=== PATIENT | male | born 1990 | race African-American/Black ===

== ENCOUNTER 2017-05-24 16:01 | Emergency (ER) | payer SELFPAY ==
[~2017-05-24] VITALS: Ht 180.3 cm; Wt 85.6 kg
[2017-05-24 16:06] VITALS: TEMP 36.7; Ht 180.3 cm; Wt 85.6 kg
[2017-05-24] MEDS ORDERED: ALBUT/IPRATROP 3MG/0.5MG NEB 3 ML VIAL INH STA (16:15)
--- NOTE | 2017-05-24 16:48 | DIAGNOSTIC IMAGING REPORT ---
TWO VIEW CHEST CLINICAL HISTORY: Fever. FINDINGS: PA and lateral chest radiographs are obtained. No prior studies are available for comparison at the time of dictation. The cardiomediastinal silhouette is unremarkable. The lungs and pleural spaces are clear. There is no pneumothorax. The bony thorax appears intact. IMPRESSION: No active disease in the chest. Electronically signed by: Randy Edmond M.D. 05/24/2017 4:46 PM Dictated Date/Time: 05/24/2017 4:46 PM
[2017-05-24] MEDS ORDERED: ALBUTEROL HFA 8 GM INHALER INH ONE (17:15)
--- NOTE | 2017-05-24 17:18 | EMERGENCY ROOM VISIT NOTE ---
History Report prepared by Ed: Mora Munson Under the Supervision of: Dr. Keaton Faith M.D. First contact with patient: 16:10 Chief Complaint: RESPIRATORY PROBLEMS Stated Complaint: ASTHMA ATTACK Nursing Triage Summary: Pt reports he walked to work today, pt believes he may have had an asthma attack to the [facility]. pt c/o right sided pain, pain with deep breathing. hx of Asthma, but does not have inhalers now History of Present Illness The patient is a 26 year old male who presents to the Emergency Room with complaints of an asthma attack beginning shortly prior to arrival. The patient states that he was walking to his job and thinks that the asphalt from the roads may have aggravated his symptoms. It is also very warm and humid outside. When he got to his job, he sat down for 45 minutes to see if his symptoms would go away, but he still felt like he couldn't breathe. He also complains of some bilateral sharp chest pains with deep breaths. He denies any pain or swelling in his legs and being febrile. The patient reports that he smokes 1-2 cigarettes per day. He states that he has no other medical problems besides asthma and that he has no history of blood clots. The patient denies recent travel and being bed-ridden. Source of History: patient Onset: shortly prior to arrival Position: other (global) Quality: sharp Modifying Factors (Worsening): breathing (deep) Associated Symptoms: No fevers Note: also denies: pain and swelling in bilateral legs Review of Systems See HPI for pertinent positives & negatives. A total of 10 systems reviewed and were otherwise negative. Past Medical & Surgical Medical Problems: (1) Asthma, Unspecified (2) Orchitis/Epididymit Nos Social History Problems: (1) Tobacco Use Disorder Family History Patient reports no known family medical history. No pertinent family history stated. Social History Smoking Status: Current Every Day Smoker Alcohol Use: occasionally Marital Status: single Occupation Status: employed Current/Historical Medications No Active Prescriptions or Reported Meds Allergies Coded Allergies: No Known Allergies (Unverified , 09/29/11) Physical Exam Vital Signs Date Time Temp Pulse Resp B/P (MAP) Pulse Ox O2 Delivery O2 Flow Rate FiO2 05/24/17 16:30 Room Air 05/24/17 16:10 96 Room Air 05/24/17 16:06 36.7 84 18 133/75 97 Room Air Physical Exam Constitutional: Vital signs reviewed. Eyes: Pupils are equal round reactive to light. Conjunctiva are noninjected. ENT: Pharynx is clear without erythema or exudate. Mucous membranes are moist. Neck supple without meningeal signs. Respiratory: Scattered wheezing bilaterally. Breath sounds are equal bilaterally. Cardiovascular: Regular rate and rhythm. No rubs or gallops. GI: Soft, nondistended and nontender. Bowel sounds are present. Musculoskeletal: No peripheral edema. No lower extremity tenderness. Integumentary: No cyanosis. Neurological: The patient is awake and alert. No focal deficits. Psychiatric: Normal affect. Medical Decision & Procedures ER Provider Diagnostic Interpretation: X-ray results as stated below per interpretation by me and the radiologist: TWO VIEW CHEST CLINICAL HISTORY: Fever. FINDINGS: PA and lateral chest radiographs are obtained. No prior studies are available for comparison at the time of dictation. The cardiomediastinal silhouette is unremarkable. The lungs and pleural spaces are clear. There is no pneumothorax. The bony thorax appears intact. IMPRESSION: No active disease in the chest. Electronically signed by: Randy Edmond M.D. 05/24/2017 4:46 PM Dictated Date/Time: 05/24/2017 4:46 PM Medications Administered Medications (Trade) Dose Ordered Sig/Denise Route Start Time Stop Time Status Last Admin Dose Admin Albuterol/ Ipratropium (Duoneb) 3 ml NOW STAT INH 05/24/17 16:15 05/24/17 16:17 DC 05/24/17 16:43 3 ML ECG Indication: SOB/dyspnea Rate (beats per minute): 70 Rhythm: normal sinus Findings: no acute ischemic change, no ectopy, other (early repolarization) ED Course 1610: The patient was evaluated in room C6. A complete history and physical exam was performed. 1615: Ordered Duoneb 3 ml INH. 1700: I checked on the patient and he feels a lot better. No wheezing on exam. 1715: Ordered Albuterol 1 puff INH. 1722: Upon reevaluation, the patient appeared to have improvement of his symptoms. I discussed tonight's findings with him. He verbalized agreement of the treatment plan. He was discharged home. Medical Decision This is a 26-year-old male who presents with shortness of breath and chest discomfort. Differential diagnosis includes acute asthma exacerbation, pleurisy , pneumonia, pneumothorax. I did perform a limited focused review of portions of the patient's old chart on the electronic medical record. The patient has had no recent pertinent visits to this hospital. Blood Pressure Screening: Patient was found to have a slightly elevated blood pressure due to circumstances. I do not believe that the patient requires hypertension monitoring. Medication Reconciliation: I attest that I have personally reviewed the patient' s current medication list. I did evaluate the patient as noted above. The patient is presenting with shortness of breath. He feels like he is having an asthma exacerbation. He ran out of his inhaler. He was walking outside in the heat and humidity and was exposed to the odor of asphalt. He is wheezing on examination. I do not suspect pulmonary embolism. He was ruled out via PERC rules. I did order and personally review the patient's 12-lead EKG and chest x-ray as described above. He has early repolarization on his Twelve-lead EKG. He has no signs of pneumonia on his chest x-ray. I did treat the patient with a DuoNeb. On reassessment he states he feels much better and has no wheezing on exam. He was given an albuterol MDI and a work note and discharged in good condition. He was advised follow up with a regular physician. Impression Primary Impression: Acute asthma exacerbation Scribe Attestation The scribe's documentation has been prepared under my direct and personally reviewed by me in its entirety. I confirm that the note above accurately reflects all work, treatment, procedures, and medical decision making performed by me. Departure Information Dispostion Home / Self-Care Prescriptions No Active Prescriptions or Reported Meds Referrals No Doctor, Assigned (PCP) Forms HOME CARE DOCUMENTATION FORM, IMPORTANT VISIT INFORMATION, WORK / SCHOOL INSTRUCTIONS Patient Instructions Asthma - [facility], My [facility] Additional Instructions You have been examined and treated today on an emergency basis only. This is not a substitute for, or an effort to provide, complete comprehensive medical care. It is impossible to recognize and treat all injuries or illnesses in a single emergency department visit. It is therefore important that you follow up closely with your physician. Call as soon as possible for an appointment. Return for worsening symptoms or if you develop fever, vomiting, or any other concerning symptoms. Problem Qualifiers Primary Impression: Acute asthma exacerbation Asthma severity: unspecified severity Qualified Codes: J45.901 - Unspecified asthma with (acute) exacerbation
[2017-05-24 17:26] VITALS: BP 127/65; PULSE 78; O2SAT 98
== END 2017-05-24 17:27 | disposition home or self-care (01) ==
LOC: C.EDB 16:02 → C.EDC 17:27
DX: J45.901 Unspecified asthma with (acute) exacerbation (principal); F17.200 Nicotine dependence, unspecified, uncomplicated

== ENCOUNTER 2017-08-24 12:00 | Emergency (ER) | payer SELFPAY ==
[~2017-08-24] VITALS: Ht 182.9 cm; Wt 93.9 kg
[2017-08-24 12:01] VITALS: Ht 182.9 cm; Wt 93.9 kg
[2017-08-24] MEDS ORDERED: SODIUM CHLORIDE 0.9% 1000ML 1,000 ML IV STA (12:14)
[2017-08-24] MEDS ORDERED: ONDANSETRON INJ 2 MG/ML 2 ML VIAL IV STA (12:14)
[2017-08-24 12:41] LABS: URINE APPEARANCE CLEAR (CLEAR); URINE BILIRUBIN NEG (NEG); URINE COLOR YELLOW; URINE EPITHELIAL CELL AUTO 0-5 /lpf (0-5); URINE NITRITE NEG (NEG); URINE SPECIFIC GRAVITY 1.012 (1.000-1.030); UROBILINOGEN NEG (NEG); ZZUR CULT IF INDIC CLEAN CATCH NO
[2017-08-24 12:43] LABS: MANUAL MICROSCOPIC REQUIRED? NO; REVIEW REQ? NO
[2017-08-24 13:26] LABS: BASO % 0.3 %; BASO ABS # 0.01 K/uL (0-0.2); COMPLETE YES; HEMATOCRIT 45.2 % (42-52); IG% 0.3 %; LYMPH % 40.9 %; LYMPH ABS # 1.62 K/uL (1.2-3.4); MEAN CELL VOLUME 88.6 fL (80-100); MEAN CORPUSCULAR HEMOGLOBIN 30.6 pg (25-34); MEAN CORPUSCULAR HGB CONC 34.5 g/dl (32-36); MONO % 3.8 %; NEUT % 53.7 %; PLATELET COUNT 254 K/uL (130-400); WHITE BLOOD COUNT 3.96 K/uL (4.8-10.8)
[2017-08-24 14:00] LABS: ALKALINE PHOSPHATASE 81 U/L (45-117); ALT/SGPT 17 U/L (12-78); BLOOD UREA NITROGEN 12 mg/dl (7-18); BUN/CREATININE RATIO 10.3 (10-20); CALCIUM 8.9 mg/dl (8.5-10.1); CARBON DIOXIDE 28 mmol/L (21-32); CHLORIDE 106 mmol/L (98-107); GLUCOSE 63 mg/dl (70-99); SODIUM 141 mmol/L (136-145)
[2017-08-24 14:40] LABS: POTASSIUM 4.1 mmol/L (3.5-5.1)
[2017-08-24] MEDS ORDERED: ONDA4TAB65 PO (14:53)
[2017-08-24 15:04] VITALS: BP 153/96; PULSE 71; TEMP 36.9; O2SAT 100
--- NOTE | 2017-08-24 18:26 | EMERGENCY ROOM VISIT NOTE ---
History Report prepared by Scribe: Phyllis Vega Under the Supervision of: Dr. Matt Padron D.O. First contact with patient: 12:06 Chief Complaint: DIARRHEA Stated Complaint: PAINFUL BM'S Nursing Triage Summary: Patient c/o of diarrhea, nausea, vomiting, fever and abdominal pain x 1 week. History of Present Illness The patient is a 26 year old male who presents to the Emergency Room with complaints of persistent diarrhea for the past 1 week. He believes he is having between 10 and 15 loose bowel movements a day. He also complains of nausea, vomiting and abdominal. He has not taken his temperature, but states his girlfriend told him he felt "extra warm" the other day. He denies any recent travel, hiking trips, drinking from streams or eating suspicious foods. There is no blood or mucous in his stool. He denies any recent antibiotic use. He is not around anyone in the medical profession and he denies any recent sick contacts. The patient also denies headache, fevers, change in vision, back pain , chest pain, shortness of breath, pain with urination, and melena. Source of History: patient Onset: 1 week [employer] Position: abdomen Timing: other (persistent) Associated Symptoms: + nausea, + vomiting, + abdominal pain, No fevers, No headache, No chest pain, No SOB, No back pain, No melena, No urinary symptoms Review of Systems See HPI for pertinent positives & negatives. A total of 10 systems reviewed and were otherwise negative. Past Medical & Surgical Medical Problems: (1) Asthma, Unspecified (2) Orchitis/Epididymit Nos Social History Problems: (1) Tobacco Use Disorder Family History Patient reports no known family medical history. Social History Smoking Status: Current Every Day Smoker Alcohol Use: occasionally Marital Status: in relationship Housing Status: lives with family Occupation Status: employed Current/Historical Medications Scheduled PRN Ondansetron Hcl (Zofran), 4 MG PO TID PRN for Nausea Allergies Coded Allergies: No Known Allergies (Unverified , 08/24/17) Physical Exam Vital Signs Date Time Temp Pulse Resp B/P (MAP) Pulse Ox O2 Delivery O2 Flow Rate FiO2 08/24/17 15:04 36.9 71 18 153/96 100 Room Air 08/24/17 13:10 63 16 130/82 99 Room Air 08/24/17 12:01 58 18 150/83 97 Room Air Physical Exam GENERAL: Patient is alert, sitting up in bed, well appearing, well nourished, no distress, non-toxic EYE EXAM: normal conjunctiva OROPHARYNX: no exudate, no erythema, lips, buccal mucosa, and tongue normal and mucous membranes are moist NECK: supple, no nuchal rigidity, no adenopathy, non-tender LUNGS: Clear to auscultation. Normal chest wall mechanics HEART: Bradycardic heart rate, regular rhythm, no murmurs, S1 normal and S2 normal ABDOMEN: abdomen soft, non-tender, normo-active bowel sounds, no masses, no rebound or guarding. BACK: Back is symmetrical on inspection and there is no deformity, no midline tenderness, no CVA tenderness. SKIN: no rashes and no bruising UPPER EXTREMITIES: upper extremities are grossly normal. LOWER EXTREMITIES: No pitting edema. NEURO EXAM: Normal sensorium, cranial nerves II-XII grossly intact, normal speech, no gross weakness of arms, no gross weakness of legs. Gross sensation intact. Medical Decision & Procedures Laboratory Results 08/24/17 13:06 Red Blood Count 5.10, Mean Corpuscular Volume 88.6, Mean Corpuscular Hemoglobin 30.6, Mean Corpuscular Hemoglobin Concent 34.5, Mean Platelet Volume 10.0, Neutrophils (%) (Auto) 53.7, Lymphocytes (%) (Auto) 40.9, Monocytes (%) (Auto) 3.8, Eosinophils (%) (Auto) 1.0, Basophils (%) (Auto) 0.3, Neutrophils # (Auto) 2.13, Lymphocytes # (Auto) 1.62, Monocytes # (Auto) 0.15, Eosinophils # (Auto) 0.04, Basophils # (Auto) 0.01 08/24/17 13:06 08/24/17 14:12 Test 08/24/17 12:20 08/24/17 13:06 08/24/17 14:12 Urine Color YELLOW Urine Appearance CLEAR (CLEAR) Urine pH 8.0 (4.5-7.5) Urine Specific [place] 1.012 (1.000-1.030) Urine Protein NEG (NEG) Urine Glucose (UA) NEG (NEG) Urine Ketones NEG (NEG) Urine Occult Blood NEG (NEG) Urine Nitrite NEG (NEG) Urine Bilirubin NEG (NEG) Urine Urobilinogen NEG (NEG) Urine Leukocyte Esterase NEG (NEG) Urine WBC (Auto) 0 /hpf (0-5) Urine RBC (Auto) 0-4 /hpf (0-4) Urine Hyaline Casts (Auto) 0 /lpf (0-5) Urine Epithelial Cells (Auto) 0-5 /lpf (0-5) Urine Bacteria (Auto) NEG (NEG) White Blood Count 3.96 K/uL (4.8-10.8) Red Blood Count 5.10 M/uL (4.7-6.1) Hemoglobin 15.6 g/dL (14.0-18.0) Hematocrit 45.2 % (42-52) Mean Corpuscular Volume 88.6 fL (80-100) Mean Corpuscular Hemoglobin 30.6 pg (25-34) Mean Corpuscular Hemoglobin Concent 34.5 g/dl (32-36) Platelet Count 254 K/uL (130-400) Mean Platelet Volume 10.0 fL (7.4-10.4) Neutrophils (%) (Auto) 53.7 % Lymphocytes (%) (Auto) 40.9 % Monocytes (%) (Auto) 3.8 % Eosinophils (%) (Auto) 1.0 % Basophils (%) (Auto) 0.3 % Neutrophils # (Auto) 2.13 K/uL (1.4-6.5) Lymphocytes # (Auto) 1.62 K/uL (1.2-3.4) Monocytes # (Auto) 0.15 K/uL (0.11-0.59) Eosinophils # (Auto) 0.04 K/uL (0-0.5) Basophils # (Auto) 0.01 K/uL (0-0.2) RDW Standard Deviation 38.2 fL (36.4-46.3) RDW Coefficient of Variation 11.9 % (11.5-14.5) Immature Granulocyte % (Auto) 0.3 % Immature Granulocyte # (Auto) 0.01 K/uL (0.00-0.02) Anion Gap 7.0 mmol/L (3-11) Est Creatinine Clear Calc Drug Dose 110.0 ml/min Estimated GFR () 95.5 Estimated GFR (Non- 82.4 BUN/Creatinine Ratio 10.3 (10-20) Calcium Level 8.9 mg/dl (8.5-10.1) Total Bilirubin 0.9 mg/dl (0.2-1) Alanine Aminotransferase (ALT/SGPT) 17 U/L (12-78) Alkaline Phosphatase 81 U/L (45-117) Total Protein 8.0 gm/dl (6.4-8.2) Albumin 4.7 gm/dl (3.4-5.0) Lipase 65 U/L (73-393) Direct Bilirubin 0.2 mg/dl (0-0.2) Aspartate Amino Transf (AST/SGOT) 12 U/L (15-37) Laboratory results per my review. Medications Administered Medications (Trade) Dose Ordered Sig/Denise Route Start Time Stop Time Status Last Admin Dose Admin Sodium Chloride 1,000 ml @ 999 mls/hr Q1H1M STAT IV 08/24/17 12:14 08/24/17 13:14 DC 08/24/17 13:08 999 MLS/HR Ondansetron HCl (Zofran Inj) 4 mg NOW STAT IV 08/24/17 12:14 08/24/17 12:15 DC 08/24/17 13:09 4 MG ED Course ED COURSE: Vital signs were reviewed and showed the patient is situationally hypertensive. The patients medical record was reviewed The above diagnostic studies were performed and reviewed. ED treatments and interventions as stated above. 1208: The patient was evaluated in room B8. A complete history and physical examination was performed. 1214: Zofran 4 mg IV, NSS 1000 ml @ 999 mls/hr IV. 1400: I reevaluated the patient. He is feeling much better. 1455: Upon reevaluation, the patient is feeling well and resting comfortably. I discussed my findings with the patient and he understands and agrees with the treatment plan. Based on the patients age, coexisting illnesses, exam and lab findings the decision to treat as an outpatient was made. The patient remained stable while under my care. The patient appeared well at the time of discharge. Medical Decision Differential diagnoses includes but is not limited to gastritis, peptic ulcer disease, GERD, gallbladder disease, pancreatitis, small bowel obstruction, acute coronary syndrome, pericarditis, ischemic bowel, irritable bowel disease, irritable bowel syndrome, appendicitis, diverticulitis, malignancy, hernia, urinary tract infection, torsion, perforation, trauma, infectious. Patient is a 26-year-old male who presents to the ER for diarrhea which has been present for the past week. He notes he is going about 10-15 times a day. He admits to nausea. Denies any abdominal pain. Abdominal exam is completely benign. No recent antibiotics. He is sexually active with a single partner his girlfriend. He denies any treatment from streams, backpacking, hiking, or abnormal eating habits. Abdominal exam again is completely benign. Labs are obtained cc on BMP, LFTs, bilirubin lipase is unremarkable. UA was negative. Patient was in the ER greater than 3 hours. Unable to obtain a stool sample. Patient was discharged follow-up with PCP for stool sample. Discussed with Pt concerning signs and symptoms to watch out for. Pt was instructed to follow up with their PCP and discussed with the patient their option to return to the ED at anytime for persistent or worsening symptoms. The appropriate anticipatory guidance and out-patient management, including indications for return to the emergency department, were explained at length to the patient and understood. Medication Reconcilliation Current Medication List: was personally reviewed by me Blood Pressure Screening Patient's blood pressure: Elevated blood pressure Blood pressure disposition: Elevated BP felt to be situational Impression Primary Impression: Diarrhea Additional Impression: Nausea Scribe Attestation The scribe's documentation has been prepared under my direction and personally reviewed by me in its entirety. I confirm that the note above accurately reflects all work, treatment, procedures, and medical decision making performed by me. Departure Information Dispostion Home / Self-Care Prescriptions Ondansetron Hcl (ZOFRAN) 4 Mg Tab 4 MG PO TID Y for Nausea, #30 TAB Prov: Matt Padron, DO 08/24/17 Referrals No Doctor, Assigned (PCP) Patient Instructions ED Diarrhea Viral, My [facility] Additional Instructions Please follow up with your primary care doctor with in the next 24 hours. Any worsening of your symptoms, please return to the ED immediately. This includes any fevers greater than 100.4, worsening pain, chest pain, shortness breath, persistent nausea, vomiting, unable to eat or drink, blood in your stool, passing out, or any other concerning signs or symptoms from your standpoint. Problem Qualifiers Primary Impression: Diarrhea Diarrhea type: unspecified type Qualified Codes: R19.7 - Diarrhea, unspecified
== END 2017-08-24 15:04 | disposition home or self-care (01) ==
LOC: C.EDB 12:01
DX: R19.7 Diarrhea, unspecified (principal); R11.0 Nausea; J45.909 Unspecified asthma, uncomplicated; F17.210 Nicotine dependence, cigarettes, uncomplicated

== ENCOUNTER 2017-11-02 01:06 | Emergency (ER) | payer SELFPAY ==
[~2017-11-02] VITALS: Ht 182.9 cm; Wt 86.0 kg
[2017-11-02 01:10] VITALS: TEMP 36.9; Ht 182.9 cm; Wt 86.0 kg
[2017-11-02] MEDS ORDERED: KETOROLAC TROMETHAMINE 60 MG/2 ML VIAL IM STA (01:18)
[2017-11-02] MEDS ORDERED: CLINDAMYCIN 150MG HOME PACK PO ONE (01:30)
[2017-11-02] MEDS ORDERED: CLIN150C PO (01:30)
[2017-11-02 01:51] VITALS: BP 139/76; PULSE 98; O2SAT 100
--- NOTE | 2017-11-02 04:19 | EMERGENCY ROOM VISIT NOTE ---
History First contact with patient: 01:13 Chief Complaint: DENTAL PAIN Stated Complaint: TOOTH PAIN Nursing Triage Summary: Patient ambulatory to triage with a steady and upright gait, states "I have an abcessed tooth that is keeping me from eating and sleeping. I have been on a diet of Tylenol and Orajel. The tooth in on my right lower jaw." History of Present Illness The patient is a 26 year old male who presents to the Emergency Room with complaints of right lower dental pain for the past 2 days as throbbing, ranging in severity 6 out of 10. Nothing makes it better or worse. It does not radiate. Patient does not have a dentist. He smokes tobacco and marijuana. Patient denies chest pain, dyspnea, fevers, facial swelling, dysphagia, abdominal pain, cold symptoms. No IV drug abuse. Review of Systems See HPI for pertinent positives & negatives. A total of 6 systems reviewed and were otherwise negative. Past Medical/Surgical History Medical Problems: (1) Asthma, Unspecified (2) Orchitis/Epididymit Nos Social History Problems: (1) Tobacco Use Disorder Family History Patient reports no known family medical history. Social History Smoking Status: Current Every Day Smoker Alcohol Use: occasionally Drug Use: marijuana Marital Status: in relationship Housing Status: lives with family Occupation Status: employed Current/Historical Medications Scheduled Clindamycin Hcl (Cleocin), 150 MG PO QID Physical Exam Vital Signs Date Time Temp Pulse Resp B/P (MAP) Pulse Ox O2 Delivery O2 Flow Rate FiO2 11/02/17 01:51 98 16 139/76 100 11/02/17 01:10 36.9 93 16 145/75 100 Room Air Physical Exam VITALS: Vitals are noted on the nurse's note and reviewed by myself. Vital signs stable. GENERAL: Male with marijuana odor, in no acute distress, nondiaphoretic, well- developed well-nourished. SKIN: The skin was without rashes, erythema, edema, or bruising. There is no tenting of the skin. Capillary reflex less than 2 seconds. HEAD: Normocephalic atraumatic. EARS: External auditory canals clear, tympanic membranes pearly loving without erythema or effusion bilaterally. EYES: Pupils equal round and reactive to light and accommodation. Conjunctivae without injection, sclerae without icterus. Extraocular movements intact. NOSE: Patent, turbinates without inflammation or discharge. No sinus tenderness. MOUTH: Mucous membranes moist. Pharynx without erythema or exudate. Uvula midline. Airway patent. Tongue does not deviate. Dental exam: Right lower first molar with extensive dental decay with gum swelling concerning for abscess with no facial swelling. No Sukumar's angina. NECK: Supple without nuchal rigidity. No lymphadenopathy. No thyromegaly. Cervical spine is nontender. No JVD. HEART: Regular rate and rhythm without murmurs gallops or rubs. LUNGS: Clear to auscultation bilaterally without wheezes, rales or rhonchi. No dullness to percussion. No retractions or accessory muscle use. ABDOMEN: Positive bowel sounds x 4. Normal tympanic percussion. Soft, nontender, without masses or organomegaly. Verma sign negative. No guarding or rebound tenderness. MUSCULOSKELETAL: No muscle atrophy, erythema, or edema noted. NEURO: Patient was alert and oriented to person place and time. Normal sensation to light and sharp touch. No focal neurological deficits. Medical Decision & Procedures Medications Administered Medications (Trade) Dose Ordered Sig/Denise Route Start Time Stop Time Status Last Admin Dose Admin Clindamycin HCl (Cleocin 150MG Home Pack) 1 homepack UD ONCE PO 11/02/17 01:30 11/02/17 01:31 DC 11/02/17 01:31 1 HOMEPACK Ketorolac Tromethamine (Toradol Inj) 60 mg NOW STAT IM 11/02/17 01:18 11/02/17 01:19 DC 11/02/17 01:31 60 MG ED Course Prior records reviewed and summarized as above. Triage Nursing notes reviewed. Additional history obtained from friend. The patient's history was concerning for dental pain. Differential diagnosis: Etiologies such as cellulitis, abscess, Sukumar angina, gingivitis, cavity, as well as others were entertained.. Physical examination: The physical examination was consistent with dental infection ER treatment provided: Clindamycin On reassessment the patient felt better. Diagnostics interpreted by me: Deferred This appears to be dental abscess. Patient was started on antibiotics. He is advised to see oral surgery. He is advised to call Saturday for definitive care for his ongoing dental problem. He is advised to return to the ER immediately for fevers, facial swelling, worsening signs or symptoms or as needed.. By the evaluation outlined above emergent etiologies such as Sukumar angina, as well as others were deemed relatively unlikely. The pt informed about the findings as listed above. All questions were answered and pleased with the treatment. Return instructions were outlined and the patient was discharged in stable condition. Outpatient prescription management: Cleocin Referral: The patient was referred oral surgery for follow-up in 2 to 3 days for a recheck of the current condition. Medical Decision As above [place] Drug Monitoring Program Search Results: patient reviewed within database, no issues identified Medication Reconcilliation Current Medication List: was personally reviewed by me Blood Pressure Screening Patient's blood pressure: Normal blood pressure Impression Primary Impression: Periapical abscess Departure Information Dispostion Home / Self-Care Condition GOOD Prescriptions Clindamycin Hcl (CLEOCIN) 150 Mg Cap 150 MG PO QID for 10 Days, #40 CAP Prov: Rosy Rose .ASHLI 11/02/17 Referrals No Doctor, Assigned (PCP) Deep Colvin D.M.D. Forms HOME CARE DOCUMENTATION FORM, IMPORTANT VISIT INFORMATION Patient Instructions Dental Abscess, My [facility] Additional Instructions DO NOT drive, drink alcohol, operate machinery, or perform dangerous activities today. You were given medications in the ER that can affect your ability to safely function or operate a vehicle. Clindamycin 150mg: Take one pill 4 times daily for 10 days for your infection. Take with food, but avoid dairy. Avoid prolonged sun exposure since this medication makes you temporarily more susceptible to sunburns. All antibiotics can cause diarrhea. If this occurs and you feel worse or it does not resolve in 1-2 days follow up with your doctor or return to the Emergency Department as this could be signs of serious underlying problems. Any medication can cause an allergic reaction, stop the pills immediately and return to the ER for rash, hives, breathing difficulties, or swelling. Ibuprofen(Motrin, Advil) may be used for fever or pain. Use 600mg every six hours as needed. Take with food. Avoid using more than 2400mg in a 24 hour period. Do not use 2400mg per day for more than three consecutive days without physician direction. Prolonged inappropriate use can lead to stomach upset or ulcers. This medication can be taken if you need to drive, work, or perform activities which may be dangerous when taking narcotic pain medication. (AND/OR) Acetaminophen(Tylenol) may be used for fever or pain. Use 1000mg every six hours as needed. Avoid using more than 3000mg in a 24 hour period. This medication can be taken if you need to drive, work, or perform activities which may be dangerous when taking narcotic pain medication. [place] teeth twice a day, floss daily and do warm saltwater gargles 3 times a day. Follow-up with oral surgery on Saturday. Call for an appointment for definitive care for your dental problem. Return to ER sooner for facial swelling, fever, redness, worsening signs or symptoms or as needed.
== END 2017-11-02 01:53 | disposition home or self-care (01) ==
LOC: C.EDB 01:07
DX: K04.7 Periapical abscess without sinus (principal); F17.200 Nicotine dependence, unspecified, uncomplicated; F12.90 Cannabis use, unspecified, uncomplicated